=== PATIENT | female | born 1955 | race African-American/Black ===

== ENCOUNTER 2023-12-25 06:42 | Observation (INO) | payer OTHER ==
[~2023-12-25] VITALS: Ht 162.6 cm; Wt 122.9 kg
[~2023-12-25 06:42] MED LIST: AMLODIPINE-BEN1 EAC4 PO; BISOPROLOL-HCT1 EAC1 PO; LIPITOR10 MG PO; OMEPRAZOLE40 MG PO
[2023-12-25] MEDS: LACTATED RINGER'S 1,000 ML ONE (08:37)
[2023-12-25] MEDS ORDERED: LIDOCAINE 1% W/EPINEPHRINE 20 ML VIAL ONE (08:50)
[2023-12-25] MEDS ORDERED: BUPIVACAINE 0.25% 30ML SDV ONE (08:51)
[2023-12-25] MEDS ORDERED: MIDAZOLAM HCL 2 MG/2 ML VIAL ONE (09:42)
[2023-12-25] MEDS ORDERED: FENTANYL CITRATE/PF 100MCG/2 ML INJ ONE (09:42)
[2023-12-25] MEDS ORDERED: ACETAMINOPHEN 1000 MG/100 ML IV PRN (12:45)
[2023-12-25] MEDS: HYDROMORPHONE 1MG/1ML INJ IV PRN (13:00)
[2023-12-25] MEDS ORDERED: GLYCOPYRROLATE INJ 0.2 MG/ML VIAL ONE (13:27)
[2023-12-25] MEDS ORDERED: ROCURONIUM BROMIDE 10 MG/ML 5ML VIAL IV ONE (13:27)
[2023-12-25] MEDS ORDERED: LABETALOL HCL 5 MG/ML 20ML VIAL ONE (13:27)
[2023-12-25] MEDS ORDERED: DEXAMETHASONE SOD PHOS INJ 4 MG/ML SDV ONE (13:27)
[2023-12-25] MEDS ORDERED: SEVOFLURANE INHAL SOLN 250 ML PEN BTL ONE (13:27)
[2023-12-25] MEDS ORDERED: SUCCINYLCHOLINE CHLORIDE 20 MG/ML 10ML VIAL ONE (13:27)
[2023-12-25] MEDS ORDERED: NEOSTIGMINE 1 MG/ML 10ML VIAL ONE (13:27)
[2023-12-25] MEDS ORDERED: PROPOFOL IV EMULSION 10 MG/ML 20 ML VIAL ONE (13:27)
[2023-12-25] MEDS ORDERED: ONDANSETRON HCL INJ 2MG/ML 2ML 2 MG/ML VIAL ONE (13:27)
[2023-12-25] MEDS ORDERED: KETOROLAC TROMETHAMINE 30 MG/ML VIAL ONE (13:27)
[2023-12-25] MEDS ORDERED: LIDOCAINE HCL 2% LOCAL INJ 5 ML SDV VIAL INJ ONE (13:27)
[2023-12-25 13:46] VITALS: BP 156/88; PULSE 67; RESP 16; TEMP 97.5; O2SAT 93
[2023-12-25 15:47] VITALS: BP 141/99; PULSE 74; RESP 20; TEMP 97.8; O2SAT 96
[2023-12-25 16:25] VITALS: PULSE 74; RESP 18; O2SAT 100
[2023-12-25] MEDS: SODIUM CHLORIDE 0.9% 1000ML 1,000 ML IV SCH (17:14)
[2023-12-25] MEDS: SODIUM CHLORIDE 0.9% 250ML IRRIG IR SCH (17:14)
[2023-12-25] MEDS: ONDANSETRON HCL INJ 2MG/ML 2ML 2 MG/ML VIAL IV PRN (18:08)
[2023-12-25 20:00] VITALS: BP 130/82; PULSE 85; RESP 20; TEMP 97.8; O2SAT 98
[2023-12-25 20:10] VITALS: PULSE 85; RESP 18; O2SAT 98
[2023-12-25 21:00] VITALS: BP 130/82; PULSE 85; RESP 18; TEMP 97.8; O2SAT 98
[2023-12-26] VITALS (9 sets, daily range): BP systolic 131–153; BP diastolic 66–83; PULSE 65–84; RESP 17–20; TEMP 97.4–98.5; O2SAT 96–100
[2023-12-26 05:35] LABS: HEMATOCRIT 39.1 % (34.2-44.1); HEMOGLOBIN 12.2 g/dL (12.0-16.0); LYMPHOCYTES # (AUTO) 1.6 (1.0-3.2); LYMPHOCYTES % 18.7 % (18.0-39.1); MEAN CORPUSCULAR HEMOGLOBIN 27.8 pg (28-32); MEAN CORPUSCULAR HGB CONC 31.2 g/dL (31-35); MEAN CORPUSCULAR VOLUME 89.1 fL (81-99); MONOCYTES # (AUTO) 0.8 (0.2-0.8); MONOCYTES % 8.9 % (4.4-11.3); NEUTROPHILS # (AUTO) 6.3 (2.1-6.9); NEUTROPHILS % 71.9 % (38.7-80.0); PLATELET COUNT 240 x10e3/uL (140-360); RED BLOOD COUNT 4.39 x10e6/uL (3.6-5.1); WHITE BLOOD COUNT 8.78 x10e3/uL (4.8-10.8)
[2023-12-26 06:14] LABS: ANION GAP 15.9 mmol/L (8-16); CALCIUM 8.3 mg/dL (8.4-10.2); CREATININE, SERUM 0.74 mg/dL (0.57-1.11); POTASSIUM 3.9 mmol/L (3.5-5.1)
[2023-12-27] VITALS: BP 148/92; PULSE 82; RESP 18; TEMP 97.9; O2SAT 95
[2023-12-27 04:00] VITALS: BP 128/81; PULSE 78; RESP 18; TEMP 98; O2SAT 95
[2023-12-27 07:16] VITALS: PULSE 78; RESP 22; O2SAT 100
[2023-12-27 07:31] VITALS: BP 147/86; PULSE 79; RESP 19; TEMP 97.7; O2SAT 100
[2023-12-27 08:36] VITALS: BP 147/86; PULSE 79; RESP 19; TEMP 97.7; O2SAT 100
[2023-12-27 11:34] VITALS: BP 134/79; PULSE 78; RESP 18; TEMP 97.3; O2SAT 98
== END 2023-12-27 13:43 | disposition home or self-care (01) ==
LOC: OR 06:42 → PACU V 14:50 → MED/SURG2 15:04
PROVIDERS: ADMIT Surgery; ATTEND Surgery
DX: K44.9 Diaphragmatic hernia without obstruction or gangrene (principal); K21.9 Gastro-esophageal reflux disease without esophagitis; I10 Essential (primary) hypertension; E66.01 Morbid (severe) obesity due to excess calories; Z68.42 Body mass index [BMI] 45.0-49.9, adult; Z79.899 Other long term (current) drug therapy
CPT/HCPCS: 36415; 43280; 80048; 85025; 94799 ×3; 97116; 97162; 99252; C1766; G0378 ×3; J0330; J0690 ×2; J1100; J1170 ×2; J1885; J2001; J2250; J2405; J2470 ×2; J2704; J2710; J3010; J3490; J7030 ×3; J7121